=== PATIENT | female | born 1970 | race Caucasian/White ===

== ENCOUNTER 2020-09-22 11:48 | Outpatient (CLI) | payer BC, SELFPAY ==
--- NOTE | 2020-09-22 12:00 | MM_ITS ---
WS: [id number] BILATERAL DIGITAL DIAGNOSTIC MAMMOGRAM MAMMOGRAPHY WITH CAD CLINICAL INFORMATION: RIGHT BR NODULE COMPARISON: TECHNIQUE: Bilateral CC, MLO, and ML views. FINDINGS: Scattered fibroglandular densities bilaterally. Again seen is the 11 mm asymmetric nodular density up per outer right breast. Additional slightly more prominent ovoid opacity at the 12:00 position measur ing 5 mm. Ultrasound is pending. Left breast is unchanged and unremarkable.. ULTRASOUND BREAST RIGHT TECHNIQUE: Ultrasound right breast focused area of concern. CLINICAL INFORMATION: RIGHT BR NODULE FINDINGS: Ultrasound right breast upper-outer quadrant. No suspicious abnormality. No cystic or solid lesions. No lesions to target for biopsy. No lesions to correspond to the mammographic abnormalities. Findings are probably benign and recommend 6 month follow-up to confirm stability. MM/[place] [id number] IMPRESSION: BI-RADS: 3-Probably Benign FOLLOW UP: 6 Month Follow-up RECOMMEND 6 MONTH FOLLOW-UP RIGHT DIAGNOSTIC MAMMOGRAPHY AND ULTRASOUND.
--- NOTE | 2020-09-22 12:24 | US_ITS ---
WS: [id number] BILATERAL DIGITAL DIAGNOSTIC MAMMOGRAM MAMMOGRAPHY WITH CAD CLINICAL INFORMATION: RIGHT BR NODULE COMPARISON: TECHNIQUE: Bilateral CC, MLO, and ML views. FINDINGS: Scattered fibroglandular densities bilaterally. Again seen is the 11 mm asymmetric nodular density up per outer right breast. Additional slightly more prominent ovoid opacity at the 12:00 position measur ing 5 mm. Ultrasound is pending. Left breast is unchanged and unremarkable.. ULTRASOUND BREAST RIGHT TECHNIQUE: Ultrasound right breast focused area of concern. CLINICAL INFORMATION: RIGHT BR NODULE FINDINGS: Ultrasound right breast upper-outer quadrant. No suspicious abnormality. No cystic or solid lesions. No lesions to target for biopsy. No lesions to correspond to the mammographic abnormalities. Findings are probably benign and recommend 6 month follow-up to confirm stability. US/US breast RT limited* [id number] IMPRESSION: BI-RADS: 3-Probably Benign FOLLOW UP: 6 Month Follow-up RECOMMEND 6 MONTH FOLLOW-UP RIGHT DIAGNOSTIC MAMMOGRAPHY AND ULTRASOUND.
== END 2020-09-22 11:49 | disposition home or self-care (01) ==
LOC: RADSHAW 11:53
PROVIDERS: PCP Family Medicine; Visit Provider Nurse Practitioner Women's Health
DX: N63.10 Unspecified lump in the right breast, unspecified quadrant (principal)
CPT/HCPCS: 76642; 77066

== ENCOUNTER → 2020-12-10 13:32 | Outpatient (BNVA) | payer BC, SELFPAY | PROVIDERS: PCP Family Medicine; Visit Provider Podiatrist Foot & Ankle Surgery | DX: M79.671 Pain in right foot (principal) | CPT/HCPCS: 73630 ==

== ENCOUNTER 2021-04-28 07:45 | Outpatient (CLI) | payer OTHER, SELFPAY ==
--- NOTE | 2021-04-28 08:00 | MM_ITS ---
WS: [id number] DIAGNOSTIC RIGHT DIGITAL MAMMOGRAM WITH CAD RIGHT breast ultrasound, limited HISTORY: N63.10 - Unspecified lump in the right breast, unspecified quadrant COMPARISON: 09/22/2020, 10/11/2019 and 05/03/2017 Technique: CC, MLO and ML views. Breast composition: There are scattered areas of fibroglandular density. Focal asymmetry of increase d density persists at 9:00 in the middle depth. This asymmetry measures 11 x 10 mm. No significant in crease in size as compared to 2017. RIGHT breast ultrasound, limited. At 9:00 within the RIGHT breast at 2 cm from the nipple is a nodule which is ovoid in shape containin g multiple small cystic areas. Corresponds in size and position to the mammographic abnormality measu ring 12 x 6 mm. No increased vascularity. MM/[place] [id number] IMPRESSION: BI-RADS: 3-Probably Benign FOLLOW UP: 6 Month Follow-up Patient to return in 6 months for bilateral annual mammogram. Additional follow -up of this probable benign lesion at 9:00 in the RIGHT breast should be obtain ed. Ultrasound is also warranted as there is a small cluster of cysts at 9:00 s een by ultrasound. This area has been stable over several prior imaging studies .
--- NOTE | 2021-04-28 08:45 | US_ITS ---
WS: [id number] DIAGNOSTIC RIGHT DIGITAL MAMMOGRAM WITH CAD RIGHT breast ultrasound, limited HISTORY: N63.10 - Unspecified lump in the right breast, unspecified quadrant COMPARISON: 09/22/2020, 10/11/2019 and 05/03/2017 Technique: CC, MLO and ML views. Breast composition: There are scattered areas of fibroglandular density. Focal asymmetry of increase d density persists at 9:00 in the middle depth. This asymmetry measures 11 x 10 mm. No significant in crease in size as compared to 2017. RIGHT breast ultrasound, limited. At 9:00 within the RIGHT breast at 2 cm from the nipple is a nodule which is ovoid in shape containin g multiple small cystic areas. Corresponds in size and position to the mammographic abnormality measu ring 12 x 6 mm. No increased vascularity. US/US breast RT limited* [id number] IMPRESSION: BI-RADS: 3-Probably Benign FOLLOW UP: 6 Month Follow-up Patient to return in 6 months for bilateral annual mammogram. Additional follow -up of this probable benign lesion at 9:00 in the RIGHT breast should be obtain ed. Ultrasound is also warranted as there is a small cluster of cysts at 9:00 s een by ultrasound. This area has been stable over several prior imaging studies .
== END 2021-04-28 07:46 | disposition home or self-care (01) ==
PROVIDERS: PCP Family Medicine; Visit Provider Nurse Practitioner Women's Health
DX: N63.15 Unspecified lump in the right breast, overlapping quadrants (principal)
CPT/HCPCS: 76642; 77065

== ENCOUNTER → 2021-12-13 14:52 | Outpatient (BNVA) | payer OTHER, SELFPAY | PROVIDERS: PCP Family Medicine; Visit Provider Podiatrist Foot & Ankle Surgery | DX: M79.672 Pain in left foot (principal); M72.2 Plantar fascial fibromatosis | CPT/HCPCS: 73630 ==

== ENCOUNTER 2022-01-17 14:30 | Outpatient (CLI) | payer OTHER, SELFPAY | END 2022-01-17 14:31 | disposition home or self-care (01) | LOC: SPT 14:31 | PROVIDERS: PCP Family Medicine; Visit Provider Podiatrist Foot & Ankle Surgery | DX: Z46.89 Encounter for fitting and adjustment of other specified devices (principal); M72.2 Plantar fascial fibromatosis | CPT/HCPCS: L3030 ==

== ENCOUNTER → 2022-09-15 11:18 | Outpatient (BNVA) | payer OTHER, SELFPAY | PROVIDERS: PCP Family Medicine; Visit Provider Nurse Practitioner Women's Health | DX: Z01.419 Encounter for gynecological examination (general) (routine) without abnormal findings (principal); R92.8 Other abnormal and inconclusive findings on diagnostic imaging of breast; Z12.39 Encounter for other screening for malignant neoplasm of breast | CPT/HCPCS: 87624 ==

== ENCOUNTER 2022-10-25 09:09 | Outpatient (CLI) | payer OTHER, SELFPAY ==
--- NOTE | 2022-10-25 09:17 | MM_ITS ---
WS: [id number] DIAGNOSTIC BILATERAL DIGITAL BREAST TOMOSYNTHESIS MAMMOGRAPHY WITH CAD RIGHT breast ultrasound. HISTORY: Follow-up RIGHT breast mass. COMPARISON: 04/28/2021, 09/22/2020 and 10/11/2019 TECHNIQUE: Bilateral craniocaudad, mediolateral oblique, and mediolateral views are submitted with to mosynthesis and SM. Spot compression RIGHT CC and MLO. Computer aided detection utilized. Breast composition: There are scattered areas of fibroglandular density. Ovoid soft tissue mass measu ring 11 x 14 mm at 9:00 is unchanged in size. There are a few scattered nodules which are stable. RIGHT breast ultrasound, limited. No change in the cystic nodule RIGHT breast at 9:00, 2 cm from the nipple. Mass measures 1.3 x 0.5 cm . No increased vascularity. MM/[place] [id number] IMPRESSION: BI-RADS: 2-Benign FOLLOW UP: 1 Year Follow-up
--- NOTE | 2022-10-25 10:06 | US_ITS ---
WS: [id number] DIAGNOSTIC BILATERAL DIGITAL BREAST TOMOSYNTHESIS MAMMOGRAPHY WITH CAD RIGHT breast ultrasound. HISTORY: Follow-up RIGHT breast mass. COMPARISON: 04/28/2021, 09/22/2020 and 10/11/2019 TECHNIQUE: Bilateral craniocaudad, mediolateral oblique, and mediolateral views are submitted with to mosynthesis and SM. Spot compression RIGHT CC and MLO. Computer aided detection utilized. Breast composition: There are scattered areas of fibroglandular density. Ovoid soft tissue mass measu ring 11 x 14 mm at 9:00 is unchanged in size. There are a few scattered nodules which are stable. RIGHT breast ultrasound, limited. No change in the cystic nodule RIGHT breast at 9:00, 2 cm from the nipple. Mass measures 1.3 x 0.5 cm . No increased vascularity. US/US breast RT limited* [id number] IMPRESSION: BI-RADS: 2-Benign FOLLOW UP: 1 Year Follow-up
== END 2022-10-25 09:10 | disposition home or self-care (01) ==
LOC: RAD 09:10
PROVIDERS: PCP Family Medicine; Visit Provider Nurse Practitioner Women's Health
DX: Z12.39 Encounter for other screening for malignant neoplasm of breast (principal); R92.8 Other abnormal and inconclusive findings on diagnostic imaging of breast; N63.15 Unspecified lump in the right breast, overlapping quadrants
CPT/HCPCS: 76642; 77062; G0279

== ENCOUNTER → 2023-10-11 10:37 | Outpatient (BNVA) | payer OTHER, SELFPAY | PROVIDERS: PCP Family Medicine; Visit Provider Nurse Practitioner Women's Health | DX: N81.4 Uterovaginal prolapse, unspecified (principal); R35.0 Frequency of micturition | CPT/HCPCS: 84315; 87086 ==

== ENCOUNTER → 2023-11-23 09:15 | Outpatient (BNVA) | payer OTHER, SELFPAY | PROVIDERS: PCP Family Medicine; Visit Provider Family Medicine | DX: Z00.00 Encounter for general adult medical examination without abnormal findings (principal) | CPT/HCPCS: 80053; 80061; 82607; 84443; 85025 ==

== ENCOUNTER 2023-12-06 09:40 | Outpatient (CLI) | payer OTHER, SELFPAY ==
--- NOTE | 2023-12-06 09:44 | MM_ITS ---
WS: [id number] BILATERAL SCREENING DIGITAL TOMOSYNTHESIS MAMMOGRAM WITH CAD HISTORY: Z12.31 - Encounter for screening mammogram for malignant ... COMPARISON: 10/25/2022, 04/28/2021 and 09/22/2020 Bilateral CC and MLO views with tomosynthesis and synthetic mammography submitted. Computer aided det ection analyzed. Breast composition: There are scattered areas of fibroglandular density. No suspicious masses, microc alcifications or architectural distortion. Bilateral breast asymmetries are identified and stable ove r multiple years. Some of these asymmetries are intra mammary lymph nodes. IMPRESSION: MM/[place] [id number] BI-RADS: 2-Benign FOLLOW UP: 1 Year Follow-up
== END 2023-12-06 09:41 | disposition home or self-care (01) ==
LOC: RAD 09:41
PROVIDERS: PCP Family Medicine; Visit Provider Family Medicine
DX: Z12.31 Encounter for screening mammogram for malignant neoplasm of breast (principal); R92.323 Mammographic fibroglandular density, bilateral breasts; N64.89 Other specified disorders of breast
CPT/HCPCS: 77063; 77067

== ENCOUNTER → 2023-12-08 08:17 | Outpatient (BNVA) | payer OTHER, SELFPAY | PROVIDERS: PCP Family Medicine; Visit Provider Clinical Nurse Specialist Adult Health | DX: R30.0 Dysuria (principal); N39.0 Urinary tract infection, site not specified | CPT/HCPCS: 81000; 87077; 87086; 87184 ==

== ENCOUNTER → 2025-05-02 17:01 | Outpatient (BNVA) | payer OTHER, SELFPAY | PROVIDERS: PCP Family Medicine; Visit Provider Nurse Practitioner Women's Health | DX: N81.10 Cystocele, unspecified (principal); R53.83 Other fatigue; N81.6 Rectocele; N39.46 Mixed incontinence | CPT/HCPCS: 80053; 82306; 82607; 82728; 82746; 83036; 83525; 83540; 84402; 84403; 84439; 84443; 85025 ==

== ENCOUNTER 2025-06-10 08:34 | Outpatient (CLI) | payer OTHER, SELFPAY ==
--- NOTE | 2025-06-10 08:37 | MM_ITS ---
WS: [id number] BILATERAL 3D TOMOSYNTHESIS DIGITAL SCREENING MAMMOGRAPHY WITH CAD CLINICAL INFORMATION: SCREEN HISTORY: Screening mammogram. No current complaints. COMPARISON: 2023 TECHNIQUE: Bilateral CC and MLO views. FINDINGS: Scattered fibroglandular densities bilaterally. No suspicious focal mass, asymmetry, calcifications, or architectural distortion. No evidence of malignancy. Incidental punctate calcifications. MM/MM [facility] tomosynthesis [id number] IMPRESSION: DENSITY: There are scattered areas of fibroglandular density. BI-RADS: 2 - Benign. FOLLOW UP: 1 Year Follow-up Recommend return to annual screening mammography.
== END 2025-06-10 08:35 | disposition home or self-care (01) ==
LOC: RAD 08:34
PROVIDERS: PCP Family Medicine; Visit Provider Nurse Practitioner Women's Health
DX: Z12.31 Encounter for screening mammogram for malignant neoplasm of breast (principal); R92.323 Mammographic fibroglandular density, bilateral breasts; R92.1 Mammographic calcification found on diagnostic imaging of breast
CPT/HCPCS: 77063; 77067

== ENCOUNTER → 2025-06-11 14:58 | Outpatient (BNVA) | payer OTHER, SELFPAY | PROVIDERS: PCP Family Medicine; Visit Provider Nurse Practitioner Women's Health | DX: Z78.0 Asymptomatic menopausal state (principal) | CPT/HCPCS: 82670 ==

== ENCOUNTER 2025-07-01 07:58 | Outpatient (RCR) | payer OTHER, SELFPAY | END 2025-07-13 23:59 | disposition home or self-care (01) | LOC: SPT 07:58 | PROVIDERS: PCP Family Medicine; Visit Provider Nurse Practitioner Women's Health | DX: N39.46 Mixed incontinence (principal) | CPT/HCPCS: 97110; 97161; 97530 ==

== ENCOUNTER 2025-07-14 05:00 | Outpatient (RCR) | payer OTHER, SELFPAY | END 2025-08-12 23:59 | disposition home or self-care (01) | LOC: SPT 05:00 | PROVIDERS: PCP Family Medicine; Visit Provider Nurse Practitioner Women's Health | DX: N81.10 Cystocele, unspecified (principal); N81.6 Rectocele; N39.46 Mixed incontinence | CPT/HCPCS: 97110 ==

== ENCOUNTER 2025-08-13 10:50 | Outpatient (RCR) | payer OTHER, SELFPAY | END 2025-08-13 10:52 | disposition home or self-care (01) | LOC: SPT 10:50 | PROVIDERS: PCP Family Medicine; Visit Provider Nurse Practitioner Women's Health | DX: N81.10 Cystocele, unspecified (principal); N81.6 Rectocele; N39.46 Mixed incontinence | CPT/HCPCS: 97110; 97530 ==

== ENCOUNTER → 2025-08-26 08:44 | Outpatient (BNVA) | payer OTHER, SELFPAY | PROVIDERS: PCP Family Medicine; Visit Provider Nurse Practitioner Women's Health | DX: Z78.0 Asymptomatic menopausal state (principal) | CPT/HCPCS: 84270; 84402; 84403 ==

== ENCOUNTER → 2025-09-09 15:10 | Outpatient (BNVA) | payer OTHER, SELFPAY | PROVIDERS: PCP Family Medicine; Visit Provider Nurse Practitioner Women's Health | DX: R53.82 Chronic fatigue, unspecified (principal); E55.9 Vitamin D deficiency, unspecified; Z78.0 Asymptomatic menopausal state | CPT/HCPCS: 82306; 82670 ==

== ENCOUNTER → 2025-10-28 10:23 | Outpatient (BNVA) | payer OTHER, SELFPAY | PROVIDERS: PCP Family Medicine; Visit Provider Nurse Practitioner Women's Health | DX: R53.82 Chronic fatigue, unspecified (principal); Z78.0 Asymptomatic menopausal state; E55.9 Vitamin D deficiency, unspecified; R68.82 Decreased libido | CPT/HCPCS: 82306; 82670; 84270 ==